=== PATIENT | female | born 1955 | race Caucasian/White ===

== ENCOUNTER → 2019-08-19 | Outpatient (CLI) | payer OTHER ==
[~2019-08-19] MED LIST: CHOL400T43 GT; EST30C PV; GLUC-116 PO; MAGN400C PO; OLME1TAB25 PO
--- NOTE | 2019-08-19 12:47 | Diagnostic Imaging Report ---
INDICATION: Routine screening. COMPARISON: Comparison is made with prior mammograms from 08/14/2017 and 07/11/2016. TECHNIQUE: 2-D and 3-D bilateral screening mammography was performed. The current study was also evaluated with a Computer Aided Detection (CAD) system. 3-D tomosynthesis was also performed and reviewed. FINDINGS: Both breasts are heterogeneously dense, limiting the sensitivity of mammography. Numerous circumscribed masses in both breasts are again noted, suggestive of cysts. A mass at approximately 12 o'clock location of the left breast has increased since the prior exam. It is approximately 4 cm from the nipple and most likely represents an enlarging cyst. No new mass or malignant-appearing microcalcifications are seen. Axillae are unremarkable. IMPRESSION: Enlarging circumscribed density in the upper central left breast, approximately 4 cm from the nipple, likely enlarging cyst. Further evaluation with ultrasound is recommended for confirmation. ACR BI-RADS Category 0: Incomplete. (Needs additional imaging evaluation). Result letter will be mailed to the patient. Note: At least 10% of breast cancer is not imaged by mammography. Dictated by: Dictated on workstation # [id number]
== END ==
LOC: RAD 09:02
PROVIDERS: ATTEND Internal Medicine
DX: Z12.31 Encounter for screening mammogram for malignant neoplasm of breast (principal); R92.8 Other abnormal and inconclusive findings on diagnostic imaging of breast
CPT/HCPCS: 77067

== ENCOUNTER → 2019-08-27 | Outpatient (CLI) | payer OTHER ==
--- NOTE | 2019-08-27 10:00 | Diagnostic Imaging Report ---
INDICATION: Enlarging left breast density. COMPARISON: Correlation is made with the screening mammogram from 08/19/2019. FINDINGS: Sonographic interrogation of the upper left breast demonstrates a circumscribed simple appearing cyst at the 12 o'clock location 2 cm from the nipple measuring 1.8 x 1.1 x 2.1 cm. This likely accounts for the mammographic density. No solid mass is detected. IMPRESSION: Simple cyst at the 12 o'clock location in the left breast 2 cm from the nipple, corresponding with the mammographic density. The patient may return to routine annual screening mammography. ACR BI-RADS Category 2: Benign findings. Dictated by: Dictated on workstation # [id number]
== END ==
LOC: RAD 09:00
PROVIDERS: ATTEND Internal Medicine
DX: N60.02 Solitary cyst of left breast (principal); R92.8 Other abnormal and inconclusive findings on diagnostic imaging of breast
CPT/HCPCS: 76642

== ENCOUNTER → 2021-04-04 | Outpatient (CLI) | payer MEDICARE, OTHER | LOC: CARD 11:00 | PROVIDERS: ATTEND Nurse Practitioner Family | DX: R00.2 Palpitations (principal); R25.2 Cramp and spasm | CPT/HCPCS: 93005; 93225; 93226 ==

== ENCOUNTER → 2021-08-09 | Outpatient (CLI) | payer MEDICARE, OTHER ==
--- NOTE | 2021-08-09 13:10 | Diagnostic Imaging Report ---
INDICATION: Routine screening. COMPARISON: 08/19/2019 and 08/14/2017. TECHNIQUE: 2D and 3D bilateral screening mammography was performed with CAD. FINDINGS: Both breasts are heterogeneously dense, limiting the sensitivity of mammography. Rounded masses in both breasts are again noted, consistent with cysts. The dominant lesion in the left breast seen previously has decreased in size. No new mass or malignant-appearing microcalcifications are seen. The axillae are unremarkable. IMPRESSION: No mammographic features suspicious for malignancy are identified. ACR BI-RADS Category 2: Benign findings. Result letter will be mailed to the patient. Note: At least 10% of breast cancer is not imaged by mammography. Dictated by: Dictated on workstation # [id number]
== END ==
LOC: RAD 09:04
PROVIDERS: ATTEND Internal Medicine
DX: Z12.31 Encounter for screening mammogram for malignant neoplasm of breast (principal)
CPT/HCPCS: 77063; 77067

== ENCOUNTER → 2022-10-12 | Outpatient (CLI) | payer MEDICARE, OTHER ==
--- NOTE | 2022-10-12 11:55 | Diagnostic Imaging Report ---
Indication: Routine screening. Comparison is made with prior mammograms 08/09/2021 and 08/19/2019. 2-D and 3-D bilateral screening mammography was performed with CAD Both breasts are heterogeneously dense, limiting the sensitivity of mammography. Circumscribed masses are again noted in both breasts consistent with cysts. No new mass or malignant-appearing microcalcifications are seen. Axillae are unremarkable. IMPRESSION: BI-RADS Category 2 No mammographic features suspicious for malignancy are identified. ACR BI-RADS Category 2: Benign findings. Result letter will be mailed to the patient. Note: At least 10% of breast cancer is not imaged by mammography. Dictated by: Dictated on workstation # [id number]
== END ==
LOC: RAD 07:27
PROVIDERS: ATTEND Internal Medicine
DX: Z12.31 Encounter for screening mammogram for malignant neoplasm of breast (principal)
CPT/HCPCS: 77063; 77067

== ENCOUNTER 2023-08-11 19:44 | Emergency (ER) | payer OTHER, MEDICARE ==
[~2023-08-11] VITALS: Ht 152 cm; Wt 78.9 kg
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
[2023-08-11] MEDS ORDERED: Tetanus/Diphtheria/Pertussis (Acell) ADULT Vaccine 0.5 ML IM ONE (21:00)
[2023-08-11 21:49] LABS: BASOPHILS # (AUTO) 0.1 10^3/uL (0.0-0.1); BASOPHILS % (AUTO) 1 % (0-10); EOSINOPHILS # (AUTO) 0.4 10^3/uL (0.0-0.3); EOSINOPHILS % (AUTO) 5 % (0-10); HEMATOCRIT 39 % (35-52); HEMOGLOBIN 12.8 g/dL (11.5-16.0); LYMPHOCYTES # (AUTO) 2.5 10^3/uL (1.0-4.0); LYMPHOCYTES % (AUTO) 33 % (12-44); MEAN CORPUSCULAR HEMOGLOBIN 30 pg (25-34); MEAN CORPUSCULAR HGB CONC 33 g/dL (32-36); MEAN CORPUSCULAR VOLUME 90 fL (80-99); MEAN PLATELET VOLUME 12.2 fL (9.0-12.2); MONOCYTES # (AUTO) 0.6 10^3/uL (0.0-1.0); MONOCYTES % (AUTO) 8 % (0-12); NEUTROPHILS # (AUTO) 3.9 10^3/uL (1.8-7.8); NEUTROPHILS % (AUTO) 53 % (42-75); PLATELET COUNT 206 10^3/uL (130-400); WHITE BLOOD COUNT 7.3 10^3/uL (4.3-11.0)
[2023-08-11 21:55] LABS: PROTHROMBIN TIME PATIENT 13.5 SEC (12.2-14.7)
[2023-08-11 21:56] LABS: CHLORIDE 105 MMOL/L (98-107); POTASSIUM 3.2 MMOL/L (3.6-5.0); SODIUM 139 MMOL/L (135-145)
[2023-08-11 21:57] LABS: ALBUMIN 3.9 GM/DL (3.2-4.5)
[2023-08-11 21:58] LABS: AMYLASE 90 U/L (25-125); CALCIUM 9.6 MG/DL (8.5-10.1); FIBRIN DEGRADATION PRODUCTS 1.95 UG/ML (0.00-0.49)
[2023-08-11 21:59] LABS: GLUCOSE 200 MG/DL (70-105); TOTAL PROTEIN 7.4 GM/DL (6.4-8.2)
[2023-08-11 22:00] LABS: CARBON DIOXIDE 21 MMOL/L (21-32)
[2023-08-11 22:01] LABS: BILIRUBIN,TOTAL 0.3 MG/DL (0.1-1.0)
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
[2023-08-11 22:03] LABS: ALKALINE PHOSPHATASE 87 U/L (40-136); CREATININE SERUM 1.59 MG/DL (0.60-1.30); GFR ESTIMATED 35
--- NOTE | 2023-08-11 22:03 | Diagnostic Imaging Report ---
EXAMINATION: Pelvic radiograph. EXAM DATE: 08/11/2023 9:58 PM. COMPARISON: None available. HISTORY: Pelvic pain. TECHNIQUE: 1 view. FINDINGS: There is no acute fracture, dislocation, or destructive osseous process. The joint spaces are normal. The soft tissues are normal. IMPRESSION: No acute osseous abnormality. Dictated by: Dictated on workstation # [id number]
[2023-08-11 22:04] LABS: ACETAMINOPHEN 13 UG/ML (10-30); BUN/CREATININE RATIO 13
[2023-08-11 22:06] LABS: ALANINE AMINOTRANSFERASE 14 U/L (0-55); MAGNESIUM 2.1 MG/DL (1.6-2.4)
[2023-08-11 22:07] LABS: CREATINE KINASE 100 U/L (29-168); LIPASE 46 U/L (8-78)
[2023-08-11 22:08] LABS: ERYTHROCYTE SEDIMENTATION RATE 16 MM/HR (0-30)
[2023-08-11 22:14] LABS: CREATINE KINASE MB 1.5 NG/ML (<6.6)
[2023-08-11] MEDS ORDERED: CATHETER FLUSH 10 ML SYR IV PRN (22:30)
[2023-08-11] MEDS ORDERED: IOHEXOL 350 MG/ML 100 ML (OMNIPAQUE 350) VIAL IV ONE (22:30)
[2023-08-11] MEDS ORDERED: HOLD METFORMIN - RECEIVED CONTRAST 20 ML VIAL IV SCH (22:30)
[2023-08-11] MEDS ORDERED: NS 100 ML (IVPB) BAG IV ONE (22:30)
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
[2023-08-11] MEDS ORDERED: CYCL10TA25 PO (23:34)
[2023-08-11] MEDS ORDERED: TRAM50TA3 PO ×3 (23:34→23:36)
[2023-08-11 23:36] LABS: BACTERIA,URINE FEW /HPF; BILIRUBIN,URINE NEGATIVE (NEGATIVE); CLARITY,URINE CLEAR; COLOR,URINE YELLOW; GLUCOSE, URINE (UA) NEGATIVE (NEGATIVE); KETONES,URINE NEGATIVE (NEGATIVE); LEUKOCYTE ESTERASE ,URINE NEGATIVE (NEGATIVE); NITRITE,URINE NEGATIVE (NEGATIVE); PROTEIN,URINE TRACE (NEGATIVE); WBC,URINE 0-2 /HPF
[2023-08-11 23:37] LABS: AMORPHOUS SEDIMENT,UR FEW AMOR URATES /LPF; HYALINE CASTS, URINE 0-2 /LPF
[2023-08-11 23:46] LABS: AMPHETAMINE SCREEN, URINE NEGATIVE (NEGATIVE); BARBITURATE SCREEN URINE NEGATIVE (NEGATIVE); CANNABINOID SCREEN, URINE NEGATIVE (NEGATIVE); COCAINE SCREEN URINE NEGATIVE (NEGATIVE); METHADONE STAT NEGATIVE (NEGATIVE); OPIATE SCREEN URINE NEGATIVE (NEGATIVE); OXYCODONE STAT NEGATIVE (NEGATIVE); TRICYCLIC ANTIDEPRESSANTS SCRE NEGATIVE (NEGATIVE)
[2023-08-11 23:47] VITALS: BP 156/79
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
== END 2023-08-11 23:59 | disposition home or self-care (01) ==
LOC: EDUNIT# 19:44 → ER 19:45
DX: S09.90XA Unspecified injury of head, initial encounter (principal); S16.1XXA Strain of muscle, fascia and tendon at neck level, initial encounter; S39.012A Strain of muscle, fascia and tendon of lower back, initial encounter; S00.83XA Contusion of other part of head, initial encounter; S60.222A Contusion of left hand, initial encounter; M25.562 Pain in left knee; M25.512 Pain in left shoulder; R07.89 Other chest pain; Z23 Encounter for immunization; V89.2XXA Person injured in unspecified motor-vehicle accident, traffic, initial encounter; Y92.410 Unspecified street and highway as the place of occurrence of the external cause
CPT/HCPCS: 70450; 70486; 71045; 71260; 72125; 72128; 72131; 72170; 73030; 73552; 73562; 74177; 80053; 80306; 81000; 82150; 82550; 82553; 83690; 83735; 83874; 84484; 85025; 85379; 85610; 85652; 85730; 86141; 86850; 86900; 86901; 87088; 90471; 93005; 93041; 99284; G0480 ×2; 36415; 80320; 80329; 90715